=== PATIENT | male | born 1995 | race Caucasian/White ===

== ENCOUNTER 2018-06-08 10:24 | Emergency (ER) | payer MEDICAID, OTHER ==
[2018-06-08] MEDS: KETOROLAC 15 MG INJ IV (11:29)
[2018-06-08] MEDS: CEFTRIAXONE 1 GM/50 ML (PMX) 50 ML IVPB (11:29)
[2018-06-08] MEDS: DEXAMETHASONE 10 MG/ML 1 ML INJ IV (12:06)
== END 2018-06-08 12:35 | disposition home or self-care (01) ==
LOC: FTE 10:24
DX: K04.7 Periapical abscess without sinus (principal)
CPT/HCPCS: 10060; 96365; 96375; 99284-25